=== PATIENT | female | born 1995 | race Caucasian/White ===

== ENCOUNTER 2021-01-28 20:33 | Emergency (ER) | payer OTHER ==
[~2021-01-28] VITALS: Ht 162.6 cm; Wt 113.6 kg
[2021-01-28 21:00] VITALS: BP 107/57
== END 2021-01-29 02:16 | disposition home or self-care (01) ==
LOC: EMS 20:35
DX: K62.5 Hemorrhage of anus and rectum (principal)
CPT/HCPCS: 82271; 99283